=== PATIENT | female | born 1950 | race Caucasian/White ===

== ENCOUNTER 2023-10-27 09:08 | Day surgery (SDC) | payer MEDICARE, OTHER ==
[2023-10-23 14:38] VITALS: BMI 24.3
[~2023-10-27 09:08] MED LIST: EPINEPHrine 0.3 MG in Ophthalmic Irrigation Solution 500 ML IRR SCH
[2023-10-27] MEDS ORDERED: Cyclopentolate W/ Phenylephrin 40 DROP/2 ML BOT ONE (09:55)
[2023-10-27] MEDS ORDERED: Midazolam HCl 2 mg/2 ml Vial ONE (10:12)
[2023-10-27] MEDS ORDERED: Triamcinolone 40 MG/ML VIAL ONE (10:25)
[2023-10-27] MEDS ORDERED: CEFAZOLIN 1 GM VIAL ONE (10:25)
[2023-10-27] MEDS ORDERED: Maxitrol 0.1% Opth Oint 3.5 GM TUBE ONE (10:25)
[2023-10-27] MEDS ORDERED: Lidocaine 4% PF 5 ML AMP ONE (10:25)
[2023-10-27] MEDS ORDERED: Lidocaine 1% PF 5 ML VIAL ONE (10:25)
[2023-10-27] MEDS ORDERED: PROPOFOL 200 MG/20 ML VIAL ONE (10:25)
[2023-10-27] MEDS ORDERED: Indocyanine Green 25 MG/10 ML VIAL ONE (10:25)
[2023-10-27] MEDS ORDERED: Bupivacaine 0.75% 10 ML VIAL ONE (10:25)
== END 2023-10-27 11:40 | disposition home or self-care (01) ==
LOC: SDC 09:08
PROVIDERS: ATTEND Ophthalmology Retina Specialist
PROC: 08T43ZZ Resection of Right Vitreous, Percutaneous Approach (ICD-10-PCS; principal; 2023-10-27)
PROC: 08NE3ZZ Release Right Retina, Percutaneous Approach (ICD-10-PCS; 2023-10-27)
DX: H35.341 Macular cyst, hole, or pseudohole, right eye (principal)
CPT/HCPCS: 67025; 67042; J0171; J0690; J2250; J2704; J3301; J3490